=== PATIENT | male | born 1955 | race African-American/Black ===

== ENCOUNTER 2019-04-11 11:38 | Inpatient (IN) | payer BC ==
[~2019-04-11] VITALS: Ht 182.9 cm; Wt 92.1 kg
[~2019-04-11 11:38] MED LIST: AMLODIPINE BESY10 MG PO; ATENOLOL PO; BAY PO; BG MC; COL100 PO; ENALAPRIL10 MG PO; FOL1 PO; GLU5 PO; LOVASTATIN40 MG PO; MET2.5 PO; METFORMIN1000 MG PO; NOR10T PO; PRE10 PO; PRI20 PO; THERAGRAN-M1 TA4 PO; TYLENOL EXTRA500 M2 PO; ZYL100 PO
--- NOTE | 2019-04-11 11:59 | NUR ---
PT BROUGHT IN BY SELF WITH C/O BILATERAL TOE PAIN. NO RECENT HX OF TRAUMA. AT BEDSIDE PT IS AAOX4. RESPS E/U. SKIN IS PINK, WARM AND DRY. PERRLA. PT PLACED ON MONITOR. BED RAILS UP X1 FOR SAFETY. PT ORIENTED TO ROOM, USE OF CALL CASTRO AND BED IN LOWEST POSITION. PT IS CALM AND COOPERATIVE. PT AMBULATED FROM LOBBY TO ED WITH STEADY GAIT. PT AWAITING MSE.
[2019-04-11 12:23] LABS: BASOPHIL % 0.4 % (0-2); PLATELET COUNT 211 x10^3mcL (130-400); RED CELL DISTRIBUTION WIDTH 14.5 % (11.5-14.5)
[2019-04-11 12:33] LABS: CALCIUM 9.5 mg/dL (8.5-10.1); CARBON DIOXIDE 18.3 mmol/L (21-32); CREATININE SERUM 1.7 mg/dL (0.7-1.3); POTASSIUM SERUM 4.7 mmol/L (3.5-5.1)
[2019-04-11 12:38] LABS: ALBUMIN 3.5 g/dL (3.4-5.0); BILIRUBIN TOTAL 0.7 mg/dL (0.20-1.00)
--- NOTE | 2019-04-11 13:17 | NUR ---
REPORT RECEIVE FROM MELIA VINES. PT SITTING ON SIDE OF GURNEY IN POSITION OF COMFORT. AWAKE AND ALERT, RESP E/U, REPORTS TOE PAIN IS 7/10. MADE AWARE.
--- NOTE | 2019-04-11 13:22 | NUR ---
PT MEDICATED PER MD ORDER, PT VERBALIZED UNDERSTANDING OF MEDICATION PRIOR TO ADMINSITRATION. REPORTS THAT HIS CAN COME AT PICK HIM UP IF NEEDED. DR TAM AT BEDSIDE TO SPEAK WITH PT REGARDING PLAN OF CARE.
[2019-04-11] MEDS ORDERED: FERROUS SULFAT325 M2 PO (13:24)
[2019-04-11] MEDS ORDERED: LOP50 PO (13:25)
[2019-04-11] MEDS ORDERED: PEPCID20 MG PO (13:26)
[2019-04-11] MEDS ORDERED: B-1100 MG PO (13:27)
[2019-04-11] MEDS ORDERED: ENALAPRIL MALEA20 MG PO (13:28)
[2019-04-11] MEDS ORDERED: LIPI10 PO (13:28)
--- NOTE | 2019-04-11 14:27 | NUR ---
PT SITTING COMFORTABLY IN GURNEY, AWAKE AND ALERT, RESP E/U, REPORTS PAIN IS STILL 7/10 AT THIS TIME. MADE AWARE.
--- NOTE | 2019-04-11 15:10 | NUR ---
PT MEDICATED WITH SLOW IVP FENTANYL AND ABX INITIATED PER ORDER. PT VERBALIZED OF MEDICATION PRIOR TO ADMINISTRATION.
[2019-04-11 15:24] LABS: CHOLESTEROL/HDL RATIO 2.3
--- NOTE | 2019-04-11 15:50 | NUR ---
RECEIVED PT FROM ED VIA WHEELCHAIR, CAME IN DUE TO SWELLING AND PAIN ON BILATERAL 3RD TOES. AAOX4. DENIES HEADACHE/DIZZINESS. NO SOB NOTED, LUNG SOUNDS CTA. DENIES CHEST PAIN/PRESSURE, ME=95. DENIES ABDOMINAL DISCOMFORT. C/O NUMBNESS ON BILATERAL FEET AND 7/10 THROBBING AND INTERMITTENT PAIN ON THE BILATERAL 3RD TOES. SKIN IS DRY AND INTACT. SIDE RAILS UPX2. CALL LIGHT ON REACH. PRIMARY NURSE DONNY AT BEDSIDE FOR CONTINUITY OF CARE. AT BEDSIDE
[2019-04-11 16:08] VITALS: BP 139/83
[2019-04-11 16:14] VITALS: Ht 182.9 cm; Wt 92.1 kg
[2019-04-11 16:30] LABS: microscopic required? YES; urine erythrocyte TRACE (NEGATIVE)
--- NOTE | 2019-04-11 18:23 | NUR ---
PT RESTING IN BED. NO ACUTE DISTRESS. AAOX4. BREATHING EVEN AND UNLABORED ON RA. STATES BILAT 3RD TOE PAIN TOLERABLE AT THIS TIME. IVF INFUSING, NO REDNESS OR SWELLING TO IV SITE. HOB ELEVATED. VISITOR AT BEDSIDE. BED IN LOW POSITON, CALL LIGHT WITHIN REACH. WILL ENDORSE TO ONCOMING SHIFT.
--- NOTE | 2019-04-11 20:00 | NUR ---
RECEIVED PT IN BED, A/O X4. DENIES HEADACHE/DIZZINESS. RESP. EVEN AND UNLABORED.ON ROOM AIR, LUNG SOUNDS CLEAR BILAT. NO ACUTE DISTRESS NOTED.AFEBRILE AND VITAL SIGNS STABLE. DENIES CP OR ANY DISCOMFORT AT THIS TIME. SWELLING TO RT, LT 3RD TOE ELEVATED ON PILLOW, WOUND CULTURE OBTAINED AND SEND TO LAB ORDERED.IVF, NS AT 100ML/HR, INTACT AND INFUISNG VIA LT HAND. SITE CLEAR. ASSISTED WITH HS CARE. CALL LIGHT WITHIN REACH. WILL CONTINUE TO MONITOR.
[2019-04-11 20:27] VITALS: BP 124/79
--- NOTE | 2019-04-11 22:00 | NUR ---
COMPLAINED OF BLE PAIN, 6/, MEDICATED WITH NORCO PO ORDERED. WILL CONTINUE TO MONITOR.
--- NOTE | 2019-04-12 01:58 | NUR ---
NO COMPLAINTS NOTED AT THIS TIME. EYES CLOSED, APPEARS ASLEEP, EASILY AROUSABLE . RESP. EVEN AND UNLABORED. NO ACUTE DISTRESS NOTED. CALL LIGHT WITHIN REACH. WILL CONTINUE TO MONITOR.
[2019-04-12 04:13] VITALS: BP 103/61
--- NOTE | 2019-04-12 06:26 | NUR ---
INCISION AND DRAINAGE OF RT FOOT ABSCESS DONE AT THE BEDSIDE. AFEBRILE AND VITAL SIGNS STABLE. KEPT COMFORTABLE. IVF AINTACT AND INFUSING WELL. VOIDING FREELY. WILL ENDORSE TO INCOMING NURSE.
[2019-04-12 06:38] LABS: BASOPHIL % 0.1 % (0-2); PLATELET COUNT 187 x10^3mcL (130-400)
[2019-04-12 06:44] LABS: RED CELL DISTRIBUTION WIDTH 14.7 % (11.5-14.5)
--- NOTE | 2019-04-12 06:46 | NUR ---
LIDOCAINE GIVEN TO PT BY VICE PRESIDENT INDUSTRIAL RELATIONS. DR CONTRERAS .
[2019-04-12 06:56] LABS: CALCIUM 8.5 mg/dL (8.5-10.1); CARBON DIOXIDE 18.3 mmol/L (21-32); CREATININE SERUM 1.7 mg/dL (0.7-1.3); MAGNESIUM 1.5 mg/dL (1.8-2.4); POTASSIUM SERUM 4.7 mmol/L (3.5-5.1)
--- NOTE | 2019-04-12 07:00 | NUR ---
RECEIVED REPORT FROM FROYLAN RN, PT IN NO ACUTE RESP DISTRESS
--- NOTE | 2019-04-12 07:15 | NUR ---
PT IN BED, IN NO ACUTE RESP DISTRESS, VERBAL, CALM AND COPPERATIVE, PERLLA, NO REDNESS/DRAINAGE, RESP EVEN AND NON-LABORED, CHEST RISE SYMMETRICALLY, MEDSURG, SEE SKIN ASSESSMENT, LUNGS CTA, RA, BS ACTIVE X 4, ABD SOFT AND NON-TENDER TO TOUCH, CONTINENT, PALP PULSES, EDEMA TO (R) AND (L) 3RD TOES POST-OP, DRESSING CDI, GEN. WEAKNESS, PT, IV PATENT AND INFUSIGN WELL, DENIED PAIN/PRESSURE/CP, DENIED N/V/D, ALL NEEDS ADDRESSED AT THIS TIME, SAFETY PROTOCOL FOLLOWED, CONTINUE TO MONITOR
[2019-04-12 08:48] VITALS: BP 113/68
--- NOTE | 2019-04-12 09:23 | NUR ---
PT RESTING IN BED, IN NO ACUTE RESP DISTRESS, AM MED GIVEN PER MD ORDER VIA EMAR, TAKEN WELL, NO SIDE EFFECT NOTED AT THIS TIME, ALL NEEDS ADDRESSED SAFETY PROTOCOL FOLLOWED, DELMAR TO MONITOR
--- NOTE | 2019-04-12 10:09 | NUR ---
PT REPORTED ITCHING AFTER NIGHT RN GAVE NORCO FOR PAIN, REPORTED ITCHING HAPPENED SEVERAL TIMES IN THE PAST WHEN NORCO GIVEN FOR PAIN, NO RESP DISTRESS REPORTED, SKIN ASSESSMENT DONE, NO MORIS NOTED, INSTRUMENT FITTER BAO KIMBLE MADE AWARE, NEW ORDER NOTED, PT MADE AWARE, CHARGE NURSE FILI MADE AWARE
--- NOTE | 2019-04-12 10:12 | NUR ---
UPDATED ALLERGY LIST, PT MADE AWARE AND AGREED
--- NOTE | 2019-04-12 11:27 | NUR ---
PT SEEN BY HAND BINDERY ASSEMBLY WORKER, IN NO ACUTE DISTRESS, DRESSING CDI, ALL NEEDS ADDRESSED AT THIS TIME
--- NOTE | 2019-04-12 14:44 | NUR ---
PT SLEEPING IN BED, IN NO APPARENT DISTRESS, CONTINUE TO MONITOR
[2019-04-12 16:40] VITALS: BP 123/74
--- NOTE | 2019-04-12 17:36 | NUR ---
PT RESTING IN BED, VERBAL, IN NO ACUTE DISTRESS, AXOX4, RESP EVEN, NO COUGH/SOB, DENIED CP/PRESSURE/HEDRICK, DENIED N/V/D, ABD SOFT AND NON-TENDER, AMBULAOTRY W/ ASSIST, DRESSING CDI, PALP PULSES, CAP REILF < 2 SECS, CONTINENT, IV PATENT AND INFUSING WELL, ALL NEEDS ADDRESSED AT THIS TIME, SAFETY PROTOCOL FOLLOWED, WILL ENDORSE TO ONCOMING RN
--- NOTE | 2019-04-12 18:53 | NUR ---
REPORT GIVEN TO PAPO C[place]S NIGHTSHIFT, PT IN NO ACUTE DISTRESS
--- NOTE | 2019-04-12 20:03 | NUR ---
PT IN BED AAO X4 VERBAL INTACT DRESSING TO RT 3RD TOE AMPUTATION, NO SIGNS OF BLEEDING, SOME TOLERABLE PAIN, OFFERED PAIN MEDS PT REFUSED HE WILL CALL IF HE NEEDED PAIN MEDS, REMINDED WT BEARING STATUS TO RT FOOT, IVF INFUSING WELL ORDERED, SHIFT ASSESSMENT DONE, ATTENDED NEEDS CALL LIGHT AT REACH CONT TO MONITOR.
[2019-04-12 22:20] VITALS: BP 126/78
--- NOTE | 2019-04-13 03:51 | NUR ---
PT C/O LEG PAIN 6/10 PER ASSESSMENT, NO DISTRESS, INTACT DRESSING TO SURG INCISION SITE, MEDICATED WITH TORADAL IVP ORDERED, REPOSITIONED SELF TO COMFORT, BLE ELEVATED WITH PILLOWS CONT TO MONITOR.
[2019-04-13 05:20] VITALS: BP 136/64
--- NOTE | 2019-04-13 06:35 | NUR ---
BLD SUGAR 153 MG/DL COVERED WITH 3UNITS REG. INSULIN PER SLIDING SCALE, NO DISTRESS NO SIGNIFICANT CHANGES, WAS MEDICATED FOR PAIN X1, PAIN SCALE 6/10 INTACT DRESSING TO SURG INCISION SITE NO SIGNS OF BLEEDING, WILL ENDORSE TO INCOMING SHIFT FOR F/U CARE.
[2019-04-13 06:57] LABS: BASOPHIL % 0.6 % (0-2); PLATELET COUNT 198 x10^3mcL (130-400)
[2019-04-13 07:08] LABS: RED CELL DISTRIBUTION WIDTH 14.9 % (11.5-14.5)
[2019-04-13 07:44] LABS: CALCIUM 8.8 mg/dL (8.5-10.1); CARBON DIOXIDE 19.6 mmol/L (21-32); CREATININE SERUM 1.8 mg/dL (0.7-1.3); POTASSIUM SERUM 4.6 mmol/L (3.5-5.1)
[2019-04-13 08:18] VITALS: BP 118/74
--- NOTE | 2019-04-13 08:23 | NUR ---
AAO TIMES 4. MED SURG PATIENT. LUNGS CTA. NO SOB. O2 SAT ON RA 96%. BS'S ACTIVE TIMES 4. H[place]GSON STRONG, EXCEPT HE IS AWARE THAT HE IS NON WEIGHT BEARING ON RIGHT FOOT. RIGHT FOOT DRESSING CDI. COOPERATIVE. AND PLEASANT. PULSES PALPABLE. NO C/O PAIN.
--- NOTE | 2019-04-13 14:42 | NUR ---
DRESSING TO RIGHT FOOT CDI, PODIATRY RESIDENT CAME IN AND CHANGED THE DRESSING THIS AM. THE PATIENT STATED HE WANTS TO HAVE THE TOE AMPUTATED, AND WANTS THE DR TO KNOW, I PAGED DR CONTRERAS 4 TIMES, BUT I GOT NO RETURN CALL BACK. BAO JOLLY AWARE OF THE ABOVE.
[2019-04-13 17:23] VITALS: BP 122/72
--- NOTE | 2019-04-13 17:56 | NUR ---
AAO TIMES 4. MED SURG PATIENT. DRESSING TO RIGHT FOOT CDI. COOPERATIVE AND PLEASANT. FAMILY VISITING WITH HIM MOST OF DAY, CARING AND CONCERNED. NO C/O PAIN. NO SOB. HE KNOWS HE CAN AMBULATE LONG HE DOESNT BEAR HIS WEIGHT ON HIS RIGHT FOREFOOT, HE STATES HE BEARS HIS WEIGHT ON HIS RIGHT HEEL.
--- NOTE | 2019-04-13 19:41 | NUR ---
RECEIVED PT SEATED UP IN BED AAO X4 VERBAL NO C/O PAIN RT LEG ELEVATED WITH PILLOWS HAS INTACT DRY AND CLEAN DRESSING, PALPABLE PULSES, NO DISTRESS LUNGS CTA, IVF INFUSING @ 100CC/HR IV ACCESS @ LH PATENT NON INFIL, CONT ON VANCO IV ORDERED, NO ADV REACTION, SHIFT ASSESMENT DONE, CALL LIGHT AT REACH, WILL CONT TO MONITOR.
[2019-04-13 20:30] VITALS: BP 139/84
--- NOTE | 2019-04-13 23:36 | NUR ---
NEW IV ACCESS ESTABLISHED @ RT HAND WITH GOOD BLD RETURNED G#20, DC'D PREV SITE DUE TO INFILTRATION, WITH SLIGHT SWELLING, DENIES PAIN, CONT TO MONITOR.
[2019-04-14 06:11] VITALS: BP 134/82
--- NOTE | 2019-04-14 06:11 | NUR ---
PT C/O RT FOOT PAIN, NOTED WITH MINIMAL BLEEDING ON THE DRESSING @ RT FOOT, ELEVATED AFFECTED SITE WITH A PILLOW AND INSTRUCTED PT TO IMMOBILIZED RT FOOT KETORALAC IVP GIVEN PER PRN ORDER OF PAIN 03/06 PER ASSESSMENT, IVF INFUSING WELL, CONT ON VANCO IV, NO ADV REACTION, WELL ENDORSE TO INCOMING SHIFT FOR F/U CARE.
[2019-04-14 06:47] LABS: CALCIUM 7.9 mg/dL (8.5-10.1); CARBON DIOXIDE 19.2 mmol/L (21-32); CREATININE SERUM 1.6 mg/dL (0.7-1.3); POTASSIUM SERUM 4.5 mmol/L (3.5-5.1)
--- NOTE | 2019-04-14 07:05 | NUR ---
RECEIVED BEDSIDE REPORT FROM IOS PROGRAMMER NURSE AT THIS TIME. PATIENT RESTING COMFORTABLY IN BED. NO APPARENT DISTRESS OR DISCOMFORT NOTED. FAMILY MEMBER AT BEDSIDE. BREATHING EVEN AND UNLABORED. NO RESPIRATORY DISTRESS OR DISCOMFORT NOTED. PATIENT DENIES SHORTNESS OF BREATH. PATIENT DENIES CHEST PAIN/PRESSURE AT THIS TIME. DRESSING NOTED TO RIGHT 3RD TOE WITH MINIMAL BLOOD. PATIENT C/O MILD DISCOMFORT TO RIGHT FOOT. IV PATENT AND INTACT. ALL QUESTIONS AND CONCERNS ADDRESSED. ALL NEEDS ATTENDED TO. WILL CONTINUE TO MONITOR
[2019-04-14 07:27] LABS: BASOPHIL % 0.2 % (0-2); PLATELET COUNT 178 x10^3mcL (130-400); RED CELL DISTRIBUTION WIDTH 14.4 % (11.5-14.5)
[2019-04-14 09:03] VITALS: BP 133/81
--- NOTE | 2019-04-14 10:20 | NUR ---
MORNING MEDICATIONS ADMINISTERED. PATIENT TOLERATED MEDICATIONS WELL. NO ADVERSE EFFECTS NOTED. ALL NEEDS ATTENDED TO. WILL CONTINUE TO MONITOR
--- NOTE | 2019-04-14 11:30 | NUR ---
PATIENT BLOOD SUGAR 185. 3 UNITS INSULIN COVERAGE REQUIRED. ALL NEEDS ATTENDED TO. WILL CONTINUE TO MONITOR
--- NOTE | 2019-04-14 12:58 | NUR ---
PATIENT SITTING UP IN BED EATING LUNCH AT THIS TIME. PATIENT TOLERTATING DIET WELL. NO APPARENT DISTRESS OR DISCOMFORT NOTED. ALL NEEDS ATTENDED TO. WILL CONTINUE TO MONITOR
--- NOTE | 2019-04-14 14:20 | NUR ---
DRESSING CHANGED AT THIS TIME. CLEANSED WITH BETADINE, COVERED WITH 4X4, AND WRAPPED WITH MINA WRAP. PATIENT TOLERATED DRESSING CHANGE WELL. NO APPARENT DISTRESS OR DISCOMFORT NOTED. ALL NEEDS ATTENDED TO. WILL CONTINUE TO MONITOR
--- NOTE | 2019-04-14 16:30 | NUR ---
PATIENT BLOOD SUGAR 205. 6 UNITS OF INSULIN COVERAGE REQUIRED. ALL NEEDS ATTENDED TO. WILL CONTINUE TO MONITOR
--- NOTE | 2019-04-14 16:55 | NUR ---
PATIENT MARKED RIGHT FOOT WITH BLUE MARKER TO INDICATE SURGICAL SITE FOR PROCEDURE TOMORROW. ALL NEEDS ATTENDED TO. WILL CONTINUE TO MONITOR
--- NOTE | 2019-04-14 17:26 | NUR ---
PATIENT SITTING UP ON SIDE OF BED EATING DINNER AT THIS TIME. PATIENT TOLERATING DIET WELL. NO APPARENT DISTRESS OR DISCOMFORT NOTED. ALL NEEDS ATTENDED TO. WILL CONTINUE TO MONITOR
[2019-04-14 17:29] VITALS: BP 137/81
--- NOTE | 2019-04-14 19:11 | NUR ---
PATIENT RESTING COMFORTABLY IN BED AT THIS TIME. FAMILY MEMBER AT BEDSIDE. NO APPARENT DISTRESS OR DISCOMFORT NOTED. IV PATENT AND INTACT. ALL QUESTIONS AND CONCERNS ADDRESSED. ALL NEEDS ATTENDED TO. SAFETY PRECAUTIONS MAINTAINED. ENDORSED ALL CARE TO CHILD PSYCHOLOGY TEACHER NURSE
--- NOTE | 2019-04-14 19:45 | NUR ---
RECEIVED AWAKE IN BED, ALERT AND ORIENTED X4, AT BEDSIDE VERY SUPPORTIVE OF PATIENT'S CURRENT PLAN OF CARE. IV ACCESS AT THE RIGHT HAND INTACT AND PATENT, WITH IVF NS INFUSING AT 100CC/HR TOLERATING WELL. DRESSING TO RIGHT FOOT INTACT, DENIES ANY PAIN/DISCOMFORT AT THIS TIME.
--- NOTE | 2019-04-14 21:30 | NUR ---
BLOOD SUGAR CHECK 175MG/DL, REFUSED INSULIN COVERAGE PER PROTOCOL, PT CLAIMED NO APPETITE TO TAKE HS SNACK. EXPLAINED THE RISKS/BENEFITS BUT NO AVAIL.
[2019-04-14 21:58] VITALS: BP 139/88
--- NOTE | 2019-04-15 00:01 | NUR ---
MAINTAINED ON NPO AFTER MIDNIGHT FOR AMPUTATION OF THE 3RD TO IN AM. PATIENT COOPERATIVE WITH PLAN OF CARE. CONTINUES ON ATB IVPB WITHOUT ADVERSE REACTION NOTED.
[2019-04-15 04:43] LABS: BASOPHIL % 1.2 % (0-2); PLATELET COUNT 198 x10^3mcL (130-400); RED CELL DISTRIBUTION WIDTH 14.1 % (11.5-14.5)
[2019-04-15 05:03] LABS: BILIRUBIN TOTAL 0.33 mg/dL (0.20-1.00); CALCIUM 8.2 mg/dL (8.5-10.1); CARBON DIOXIDE 20.3 mmol/L (21-32); CREATININE SERUM 1.5 mg/dL (0.7-1.3); POTASSIUM SERUM 4.6 mmol/L (3.5-5.1); TOTAL PROTEIN, SERUM 7.6 g/dL (6.4-8.2)
--- NOTE | 2019-04-15 05:30 | NUR ---
C/O SEVERE PAIN AT THE RIGHT 3RD DIGIT , MORPHINE 2MG IVP PRN MEDICATION WITH GOOD RELIEF. BLOOD SUGAR CHECK 120MG/DL, NO S/S OF GLYCEMIC REACTION. ALL NEEDS ATTENDED.
[2019-04-15 05:39] VITALS: BP 152/85
[2019-04-15 08:42] VITALS: BP 148/85
--- NOTE | 2019-04-15 08:50 | NUR ---
CORRINE CARCAMOPH 19.9. PHARMACIST GARO NOTIFIED AN AM DOSE OF VANCO HELD.
--- NOTE | 2019-04-15 09:23 | NUR ---
PT C/O PAIN TO RLE, 06/06. MEDICATED WITH MORPHINE IV PER ORDER.
--- NOTE | 2019-04-15 10:35 | NUR ---
RESTING IN BED, REPORTED PAIN RELIEF AT THIS TIME.
--- NOTE | 2019-04-15 13:00 | NUR ---
PT LEFT TO OR IN NO DISTRESS. AWASKE, ALERT AND ORIENTED. NO C/O PAIN.
--- NOTE | 2019-04-15 15:34 | NUR ---
PT BACK FROM O.R AWAKE AND ALERT, IN NO ACUTE RESP. DISTRESS. C/O PAIN TO RT FOOT 06/06. MEDICATED WITH MORPHINE IVP.FAMILY AT BEDSIDE. INCISION SITE TO RT TOE WITH DRESSING INTACT. SECURED WITH MINA WRAP. NO BLEEDING NOTED. PT ABLE TO WIGGLE AND MOVE TOES.
--- NOTE | 2019-04-15 15:56 | NUR ---
DOSING OFF AND ON, NO ACUTE DISTRESS NOTED.
[2019-04-15 16:02] VITALS: BP 145/79
--- NOTE | 2019-04-15 18:49 | NUR ---
REMAINS IN NO DISTRESS, AWAKE AND ALERT. FAMILY AT BEDSIDE. NO C/O PAIN OR DISCOMFORT AT THIS TIME. IVF INFUSING WELL AND SITE CLEAR. DRESSING TO RT FOOT D/C/I.PT ENCOURAGED TO KEEP IT ELEVETED WITH PILLOW. CALL LIGHT WITHIN REACH.WILL BE ENDORSED TO INCOMING SHIFT.
--- NOTE | 2019-04-15 20:00 | NUR ---
RECEIVED PT IN BED, RESTING QUIETLY. A/O X4.DENIES HEADACHE/DIZZINESS. RESP.EVEN AND UNLABORED. ON ROOM AIR, NO ACUTE DISTRESS NOTED. MED-SURG PT, DENIES CP OR PRESSURE. DRESSING TO RLE DRY AND INTACT, FOOT ELEVATED ON PILLOW. ABLE TO MOVE EXTS. IVF , NS AT 100ML/HR, INTACT AND INFUSING VIA RH , SITE CLEAR. ASSISTED WITH HS CARE. NO COMPLAINTS NOTED AT THIS TIME. CALL LIGHT WITHIN REACH. WILL CONTINUE TO MONITOR.
[2019-04-15 21:37] VITALS: BP 159/88
--- NOTE | 2019-04-16 01:36 | NUR ---
EYES CLOSED, APPEARS ASLEEP. EASILY AROUSABLE. RESP. EVEN AND UNLABORED. NO ACUTE DISTRESS NOTED. IVF INTACT AND INFUSING WELL, SITE CLEAR. CALL LIGHT WITHIN REACH. WILL CONTINUE TO MONITOR.
[2019-04-16 05:28] VITALS: BP 142/77
--- NOTE | 2019-04-16 06:12 | NUR ---
TEMP. 100.4, COOLING MEASURES APPLIED. TYLENOL 650MG PO GIVEN. PT ALSO COMPLAINED OF RT FOOT PAIN, 02/04, MEDICATED WITH MORPHINE SULFATE ORDERED. DUE MEDS GIVEN ORDERED. HOPE. WELL. RT FOOT DRESSING DRY AND INTACT. FOOT REMAINS ELEVATED ON A PILLOW. IVF INTACT AND INFUSING WELL, SITE CLEAR.KEPT COMFORTABLE. CALL LIGHT WITHIN REACH. WILL CONTINUE TO MONITOR.
[2019-04-16 06:29] LABS: BASOPHIL % 0.3 % (0-2); PLATELET COUNT 189 x10^3mcL (130-400); RED CELL DISTRIBUTION WIDTH 13.8 % (11.5-14.5)
[2019-04-16 06:47] LABS: CALCIUM 8.2 mg/dL (8.5-10.1); CARBON DIOXIDE 19.6 mmol/L (21-32); CREATININE SERUM 1.5 mg/dL (0.7-1.3); POTASSIUM SERUM 4.2 mmol/L (3.5-5.1)
--- NOTE | 2019-04-16 07:11 | NUR ---
RECEIVED PT FROM METAL FILER NURSE. PT IN BED SLEEPING, AROUSABLE, RESP E/U ON RA. NO SIGNS OF ACUTE DISTRESS NOTED. IV TO RH W/ NO SIGNS OF INFILTRATION, IVF INFUSING WELL. DRESSING TO RLE CDI, CONTACT PRECAUTIONS MAINTAINED FOR MRSA TO WOUND S/P R TOE AMPUTATION. BED IN LOWEST POSITION AND CALL LIGHT WITHIN REACH. WILL CONTINUE TO MONITOR.
[2019-04-16 09:14] VITALS: BP 142/80
--- NOTE | 2019-04-16 12:45 | NUR ---
PT SITTING UPRIGHT IN BED HAVING LUNCH, AOX4, RESP E/I ON RA. REPORTED PAIN TO R FOOT RATED 8/10, DRESING CDI. MEDICATED ORDERED PER EMAR, COMFOR TMEASURES IMPLEMTENTED. BED IN LOWEST POSITION AND CALL LIGHT WITHIN REACH. WILL CONTINUNE TO MONITOR.
--- NOTE | 2019-04-16 17:20 | NUR ---
PT RESTING IN BED, AOX4, RESP E/U ON RA. REPORTED MILD PAIN TO R FOOT BUT TOLERABLE, NO REQUEST FOR PAIN MEDS AT THIS TIME, COMFORT MEASURES IMPLEMNTED. IV TO R HAND W/ NO SIGNS OF INFILTRATION, IVF INFUSING WELL. BED IN LOWEST POSITION AND CALL LIGHT WITHIN REACH. WILL ENDORSE TO ONCOMING NURSE.
[2019-04-16 17:35] VITALS: BP 161/96
--- NOTE | 2019-04-16 19:52 | NUR ---
RECEIVED PT IN BED. A/O X4. DENIES HEADACHE/DIZZINESS. RESP. EVEN AND UNLABORED. LUNG SOUNDS CLEAR BILAT. ON ROOM AIR, NO ACUTE DISTRESS NOTED.DRESSING TO RLE , DRY AND INTACT. FOOT ELEVATED ON PILLOW, ABLE TO MOVE EXTS. IVF, NS AT 100ML/HR, INTACT AND INFUSING VIA RT HAND, SITE CLEAR. VOIDING FREELY. CALL LIGHT WITHIN REACH. WILL CONTINUE TO MONITOR.
[2019-04-16 20:13] VITALS: BP 123/69
--- NOTE | 2019-04-16 23:31 | NUR ---
COMPLAINED OF RT FOOT AND HAND PAIN, 6/10, REQUESTING PAIN MED, MEDICATED WITH MORPHINE SULFATE ORDERED. WILL CONTINUE TO MONITOR.
--- NOTE | 2019-04-17 00:24 | NUR ---
PT RESTING QUIETLY , WATCHING T.V. DENIES PAIN OR ANY DISCOMFORT AT THIS TIME. PAIN LEVEL AT 0/10. WILL CONTINUE TO MONITOR.
--- NOTE | 2019-04-17 02:11 | NUR ---
COMPLAINING OF PAIN TO IV SITE, IV DISCONT. NEW IV SITE RESTARTED ON LFA WITH #22G ANGIO. IVF RECONNECTED AND INFUSING WELL AT THIS TIME. WILL CONTINUE TO MONITOR./
--- NOTE | 2019-04-17 03:20 | NUR ---
SLEEPING QUIETLY. APPEARS COMFORTABLE. EASILY AROUSABLE. RESP. EVEN AND UNLABORED. NO ACUTE DISTRESS NOTED. WILL CONTINUE TO MONITOR.
--- NOTE | 2019-04-17 05:58 | NUR ---
COMPLAINING OF RT HAND PAIN, 12/05, MEDICATED WITH TORADOL ORDERED. TEMP. 100.9, TYLENOL PO GIVEN ORDERED. DUE MEDS GIVEN ORDERED, HOPE. WELL. IVF INTACT AND INFUSING WELL, SITE CLEAR. RT FOOT DRESSING DRY AND INTACT.ELEVATED ON PILLOW. KEPT COMFORTABLE. VOIDING FREELY. NO BM NOTED. CONTACT ISOLATION PREC. MAINTAINED. WILL CONTINUE TO MONITOR.
[2019-04-17 06:29] LABS: BASOPHIL % 0.1 % (0-2); PLATELET COUNT 204 x10^3mcL (130-400); RED CELL DISTRIBUTION WIDTH 13.8 % (11.5-14.5)
[2019-04-17 06:38] LABS: CALCIUM 8.5 mg/dL (8.5-10.1); CARBON DIOXIDE 17.5 mmol/L (21-32); CREATININE SERUM 1.7 mg/dL (0.7-1.3); POTASSIUM SERUM 4.2 mmol/L (3.5-5.1)
[2019-04-17 06:41] VITALS: BP 122/890
--- NOTE | 2019-04-17 07:40 | NUR ---
THE PATIENT AMBULATED FROM BATHROOM BACK TO THE BED AND SAT AT THE BEDSIDE. PATIENT HAD SLOW BUT STEADY GAIT. PATIENT ORIENTED TO PERSON, PLACE AND TIME. PATIENT DENIES SHORTNESS OF BREATH, NAUSEA/VOMITING OR PAIN AT THIS TIME. IVF NS AT 100CC/HR VIA IV SITE TO LFA. CALL LIGHT WITHIN REACH. SIDE RAILS UP X2. BED IS AT LOWEST POSITION.
[2019-04-17 08:22] VITALS: BP 124/81
--- NOTE | 2019-04-17 10:17 | NUR ---
PHYSICAL THERAPIST IS AT BEDSIDE FOR PT.
--- NOTE | 2019-04-17 13:18 | NUR ---
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 PMHx: HTN, DM, RA PSHx: BILATERAL PINKY TO AMPUTATIONS Labs: NA 134L, BG 146H, CREAT 1.7H, A1C 7.6H Meds: Colace, D 50%, ferrous sulfate, humulin, Lipitor, vancomycin, Pepcid, zofran Diet: [facility] PO Intake: (04/17) breakfast 100%, (04/16) dinner 100%, breakfast, lunch 90% Ht: 182.88 cm (72") Wt: 92 kg (202#) BMI: 27.5 kg/m2 Bed scale: 92 kg IBW: 178# (81 kg) %IBW: 113 UBW: 90-95 kg Age: 63/M Food Allergies: NKFA Skin: s/p R 3rd toe amputation, dressing intact Gurjit: 19 Edema: trace RLE GI: Last BM: 04/15 Per H&P, Pt is a 63-year-old Male who presents to the ED for evaluation of a 2 month history of constant pain and swelling to the right 3rd toe. RDN Visit (04/17): Patient was alert and oriented and said that he ate most of his breakfast this morning. 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 Plan is to continue ivabx, pain mgmt. Problem with: N/V/D/C: none Problems with: Chewing/Swallowing: none Current appetite: good Recent wt change: gained few #, not sure exactly %wt change: n/a Vitamin/Supplement use: none Special diet at home: Diabetic Physical activity: walking Nutrition education given: Diabetes diet education was provided using [facility] handout on 'Type 2 Diabetes Nutrition Therapy'. Concepts like high fiber diet, label reading, types of carbohydrates and portion control were discussed. Patient verbalized understanding and did not have any questions at this time. Food-drug interactions: Colace- high fiber w/4708-7923 ml fluids Education given: n/a Estimated Nutritional Needs Based on ideal body weight 81 kg Energy: 7722-4102 kcal/d (25-30 kcal/kg) Protein: 81-97 g/d (1.0-1.2g/kg)- foot ulcer Fluid: 1466-5179 ml/d (1 ml/kcal) or per doctor Nutrition Diagnosis 1. Impaired nutrient utilization related to endocrine insufficiency as evidenced by A1C 7.6, B Intervention 1. Recommend continuing [facility] diet. 2. Diabetes diet education has been provided. Monitor/Evaluate Goal: PO intake at least 75% of estimated needs Monitor: PO intake, Labs, GI function F/U in 7 days as low risk 04/24
--- NOTE | 2019-04-17 13:19 | NUR ---
1. Recommend continuing [facility] diet. 2. Diabetes diet education has been provided.
[2019-04-17 16:22] VITALS: BP 149/83
--- NOTE | 2019-04-17 18:12 | NUR ---
POST OP SHOE PROVIDED TO THE PATIENT ORDERED.
--- NOTE | 2019-04-17 19:30 | NUR ---
RECIEVED PATIENT AT START OF SHIFT A/O X4. MED-SURG. NO SOB ON RA, LUNGS CTAB. REPORTING 6/10 PAIN TO RLE. WILL MEDICATE WHEN PAIN MED IS DUE. +1 PITTING EDEMA NOTED TO RLE. RIGHT FOOT DRESSING IN PLACE, CDI. IV TO LFA INFUSING WITHOUT ERYTHEMA OR INFILTRATION. BED LOCKED AND IN LWOEST POSIITON. POST OP SHOE FOR RIGHT FOOT AT BEDSIDE. CALL LIGHT AND BEDSIDE TABLE WITHIN REACH.
[2019-04-17 20:45] VITALS: BP 144/91
--- NOTE | 2019-04-18 02:00 | NUR ---
PATIENT IS AWAKE WATCHING TV. DENEIS PAIN. NO DISTRESS OR SOB NOTED. IV INFUSING WELL. BED LOCKED AND IN LOWEST POSIITON, CALL LIGHT AND BEDSDIE TABLE WITHIN REACH.
[2019-04-18 06:00] VITALS: BP 136/77
--- NOTE | 2019-04-18 06:01 | NUR ---
PATIENT SLEPT INTERMITTENTLY THROUGH THE NIGHT. NO SOB OR COMPLAINT OF PAIN. IV INFUSING WELL. RIGHT FOOT DRESSING CDI. POST OP SHOE AT BEDSDIE. CALL LIGHT AND BEDSIDE TABLE WITHIN REACH. WILL ENDORSE CARE TO DAYSHIFT NURSE.
[2019-04-18 08:10] VITALS: BP 149/92
--- NOTE | 2019-04-18 08:17 | NUR ---
AT 0720 - RECEIVED PATIENT FROM NIGHT NURSE. AWAKE, ALERT AND ORIENTED X 4. . IV INFUSING NS AT 100ML/HR. PATIENT C/O PAIN IN R HAND AT SITE OF PREVIOUS IV. NOTED SOME EDEMA OF HAND. NO REDDNESS NOTED. ENCOURAGED PATIENT TO KEEP ELEVATED ON PILLOW. DRESSING TO R FOOT IS DRY AND INTACT. PATIENT ALLOWED TO WEIGHT BEAR ON HEEL ONLY. POST-OP SHOE AT BEDSIDE.
[2019-04-18] MEDS ORDERED: ULTRAM50 MG PO (10:26)
[2019-04-18] MEDS ORDERED: BACDS PO (10:26)
--- NOTE | 2019-04-18 11:07 | NUR ---
AT 0900 - C/O PAIN OF R HAND -OLD IV SITE. NOTED EDEMA BUT NO REDDNESS. HAS HAD ORDER OF ULTRASOUND BY ERECTOR OPERATOR. PATIENT REPORTS THAT PAIN IS NOT CONTROLLED WITH TORADOL. GIVEN IV MORPHINE AT THIS TIME. WILL GET ORDER FOR PO PAIN MEDS. AT 1000 - REPROTS GOOD RELIEF OF PAIN. AT 1055 - PHYSICAL THERAPY AT BEDSIDE.
--- NOTE | 2019-04-18 13:12 | NUR ---
AWAITING ULTRASOUND RESULTS. IF NEGATIVE PATIENT TO DC HOME WITH HOME HELATH. PATIENT REPROTS THAT HE ALREADY AHS A WALKER AT HOME.
[2019-04-18 13:31] VITALS: BP 126/77
--- NOTE | 2019-04-18 14:58 | NUR ---
RESTING QUIETLY. AWAITING ULTRASOUND RESULTS.
[2019-04-18 17:05] VITALS: BP 152/85
--- NOTE | 2019-04-18 18:09 | NUR ---
R HAND ULTRASOUND RESULT AVAILABLE - NEGATIVE FOR DVT. PATIENT MAY DC HOME. PRINTED DISCHARGE INSTRUCTIONS GIVEN AND EXPLAINED TO PATIENT AND . PRESCRIPTION PROVIDED. IV CATHETER REMOVED INTACT. PATIENT HAS HOME WALKER. GOING HOME WITH POST-OP SHOE
--- NOTE | 2019-04-18 18:35 | NUR ---
DISCHARGED HOME WITH . TAKEN TO CAR IN WHEELCHAIR BY JING.
== END 2019-04-18 18:32 | disposition home or self-care (01) | DRG 41 ==
LOC: ED 11:38 → MU 14:57
PROVIDERS: Emergency Medicine; General Practice; Podiatrist Foot & Ankle Surgery; ADMIT Internal Medicine
PROC: 0Y6T0Z0 Detachment at Right 3rd Toe, Complete, Open Approach (ICD-10-PCS; principal; 2019-04-15 11:45)
DX: E11.42 Type 2 diabetes mellitus with diabetic polyneuropathy (principal); M86.9 Osteomyelitis, unspecified; E11.69 Type 2 diabetes mellitus with other specified complication; M1A.9XX1 Chronic gout, unspecified, with tophus (tophi); E11.621 Type 2 diabetes mellitus with foot ulcer; E11.65 Type 2 diabetes mellitus with hyperglycemia; E83.42 Hypomagnesemia; M06.9 Rheumatoid arthritis, unspecified; L97.511 Non-pressure chronic ulcer of other part of right foot limited to breakdown of skin; I10 Essential (primary) hypertension; Z89.422 Acquired absence of other left toe(s); Z89.421 Acquired absence of other right toe(s); Z68.27 Body mass index [BMI] 27.0-27.9, adult; Z79.84 Long term (current) use of oral hypoglycemic drugs; Z22.322 Carrier or suspected carrier of Methicillin resistant Staphylococcus aureus
CPT/HCPCS: 82962; 97116-GP; 97530-GP; G0378; J0690; J1815; J1885; J2001; J2270; J2405; J2704; J3010; J3370; J3475; J3490; J7030; Q0092; Q0163

== ENCOUNTER 2019-04-22 09:38 | Emergency (ER) | payer BC ==
[~2019-04-22] VITALS: Ht 182.9 cm; Wt 90.7 kg
[~2019-04-22 09:38] MED LIST changes: +B-1100 MG PO; +BACDS PO; +ENALAPRIL MALEA20 MG PO; +FERROUS SULFAT325 M2 PO; +LIPI10 PO; +LOP50 PO; +PEPCID20 MG PO; +ULTRAM50 MG PO
[2019-04-22 09:43] VITALS: Ht 182.9 cm; Wt 90.7 kg
[2019-04-22 12:40] VITALS: BP 135/71
== END 2019-04-22 12:40 | disposition home or self-care (01) ==
LOC: ED 09:38
DX: M19.90 Unspecified osteoarthritis, unspecified site (principal); I10 Essential (primary) hypertension; E11.9 Type 2 diabetes mellitus without complications; M06.9 Rheumatoid arthritis, unspecified; Z98.890 Other specified postprocedural states; Z88.6 Allergy status to analgesic agent; Z88.5 Allergy status to narcotic agent; Z48.01 Encounter for change or removal of surgical wound dressing
CPT/HCPCS: Q0092

== ENCOUNTER 2020-05-23 10:09 | Emergency (ER) | payer BC ==
[~2020-05-23] VITALS: Ht 182.9 cm; Wt 91.6 kg
[2020-05-23 10:20] VITALS: Ht 182.9 cm; Wt 91.6 kg
[2020-05-23 13:02] LABS: BASOPHIL % 1.3 % (0-2); PLATELET COUNT 200 x10^3mcL (130-400); RED CELL DISTRIBUTION WIDTH 15.1 % (11.5-14.5)
[2020-05-23 15:29] VITALS: BP 170/101
== END 2020-05-23 15:29 | disposition home or self-care (01) ==
LOC: ED 10:09
PROVIDERS: Emergency Medicine
DX: M86.9 Osteomyelitis, unspecified (principal); I10 Essential (primary) hypertension; E11.9 Type 2 diabetes mellitus without complications; M06.9 Rheumatoid arthritis, unspecified; Z88.5 Allergy status to narcotic agent
CPT/HCPCS: Q0092